=== PATIENT | female | born 1960 | race Caucasian/White ===

== ENCOUNTER 2019-06-25 02:09 | Inpatient (IN) | payer MEDICAID, MEDICARE ==
[~2019-06-25] VITALS: Ht 167.6 cm; Wt 73.9 kg
--- NOTE | 2019-06-25 02:35 | NUR ---
MD AT BEDSIDE TO ASSESS PT
--- NOTE | 2019-06-25 02:41 | NUR ---
THIS IS A 59Y F THAT COMES IN FOR SOB AND PERSISTANT COUGH X1 MONTH. PT STS SHE IS UNABLE TO AMBULATE AROUND HER HOME WITHOUT LOSING HER BREATH. PT STS THIS IS WORSENING OVER THE PAST MONTH. PT DENIES RECENT FEVER CHILLS, N/V/D. PT HAS HX OF CHF AND LUNG CA. PT CONNEFCTED TO MONITORING VSS, CALL LIGHT IN REACH
[2019-06-25] MEDS ORDERED: SODIUM CHLORIDE FLUSH 10ML SYR IVF ONE (03:00)
[2019-06-25 03:29] LABS: INTERNATIONAL NORMALIZED RATIO 1.07 (0.93-1.1); PROTHROMBIN TIME 11.2 Seconds (9.6-11.5)
[2019-06-25 03:30] LABS: ALANINE AMINOTRANSFERASE 28 U/L (12-78); ALBUMIN 3.1 g/dL (3.4-5.0); ANION GAP 7 mmol/L (5-15); CALCIUM 9.3 mg/dL (8.5-10.1); CHLORIDE 107 mmol/L (98-107); CREATININE 0.75 mg/dL (0.55-1.02)
[2019-06-25 03:33] LABS: BASOPHILS # (AUTO) 0.11 x10^3/uL (0-0.1); BASOPHILS % (AUTO) 1 % (0-1); EOSINOPHILS # (AUTO) 0.08 x10^3/uL (0-0.4); EOSINOPHILS % (AUTO) 1 % (1-7); LYMPHOCYTES # (AUTO) 3.71 x10^3/uL (1-3.4); LYMPHOCYTES % (AUTO) 33 % (22-44); MD NO; MEAN CORPUSCULAR HEMOGLOBIN 30.2 pg (27.0-34.8); MEAN CORPUSCULAR VOLUME 97.5 fL (80-100); MEAN PLATELET VOLUME 10.9 fL (7.4-10.4); MONOCYTES % (AUTO) 9 % (2-9); NEUTROPHILS % (AUTO) 57 % (42-75); PLATELET COUNT 325 x10^3/uL (130-400); RED BLOOD COUNT 5.06 x10^6/uL (3.82-5.3); RED CELL DISTRIBUTION WIDTH 16.5 % (9.6-15.2)
--- NOTE | 2019-06-25 03:33 | NUR ---
XRAY AT BEDSIDE
[2019-06-25 03:34] LABS: ALKALINE PHOSPHATASE 98 U/L (45-117); BILIRUBIN,TOTAL 0.5 mg/dL (0.2-1.0); TOTAL PROTEIN 8.2 g/dL (6.4-8.2); TROPONIN I < 0.015 ng/mL (0.000-0.045)
--- NOTE | 2019-06-25 03:37 | NUR ---
PT RESTING ON [employer] WATCHING TV. VSS, CALL LIGHT IN REACH
[2019-06-25] MEDS ORDERED: FUROSEMIDE 40 MG/4 ML ONE (03:59)
[2019-06-25] MEDS ORDERED: FUROSEMIDE 40 MG/4 ML IV ONE (04:00)
[2019-06-25] MEDS ORDERED: LISINOPRIL (04:08)
[2019-06-25] MEDS ORDERED: ATOR40TA78 PO (04:09)
--- NOTE | 2019-06-25 04:10 | NUR ---
hospitalist at bedside to admit pt
[2019-06-25] MEDS ORDERED: SOTA80TA PO (04:11)
[2019-06-25] MEDS ORDERED: ASPI-496 PO (04:12)
[2019-06-25] MEDS ORDERED: BISACODYL 10 MG SUPP PR PRN (04:30)
[2019-06-25] MEDS ORDERED: CEFTRIAXONE PMX 1GM/50ML 50 ML IVPB ONE (04:30)
[2019-06-25] MEDS ORDERED: ONDANSETRON ODT 4 MG PO PRN (04:30)
[2019-06-25] MEDS ORDERED: POLYETHYLENE GLYCOL 17 GM PACKET PO PRN (04:30)
[2019-06-25] MEDS ORDERED: hydrALAzine 20 MG/ML, 1ML IVPush PRN (04:30)
[2019-06-25] MEDS ORDERED: PROMETHAZINE 25 MG/ML, 1ML IM PRN (04:30)
[2019-06-25] MEDS ORDERED: AZITHROMYCIN 500 MG in SODIUM CHLORIDE 0.9% 250 ML IVPB ONE (04:30)
[2019-06-25] MEDS ORDERED: ENOXAPARIN 40 MG/0.4 ML ONE (05:15)
[2019-06-25] MEDS ORDERED: CEFTRIAXONE PMX 2GM/50ML 50 ML ONE (05:15)
[2019-06-25] MEDS: ENOXAPARIN 40 MG/0.4 ML SQ SCH (05:24)
[2019-06-25] MEDS: CEFTRIAXONE PMX 2GM/50ML 50 ML IV SCH (05:24)
--- NOTE | 2019-06-25 05:24 | NUR ---
ABX STARTED, BLOOD CULTURES DRAWN X2
[2019-06-25 05:34] LABS: FREE T4 (FREE THYROXINE) 1.7 ng/dL (0.76-1.46)
[2019-06-25 05:37] LABS: HEMOGLOBIN A1C 6.1 % (4.2-6.3)
[2019-06-25] MEDS ORDERED: ACETAMINOPHEN 325 MG TABLET ONE (06:04)
[2019-06-25] MEDS: AZITHROMYCIN 500 MG in SODIUM CHLORIDE 0.9% 250 ML IV SCH (06:07)
[2019-06-25] MEDS: ACETAMINOPHEN 325 MG TABLET PO PRN (06:07)
--- NOTE | 2019-06-25 06:07 | NUR ---
PT MEDICATED PER SEP. PT C/O HOGAN, PT GIVEN TYLENOL PER SEP.
--- NOTE | 2019-06-25 06:58 | NUR ---
REPORT FROM [facility] TO ASSUME CARE AT THIS TIME.
[2019-06-25] MEDS: FUROSEMIDE 20 MG/2 ML IV SCH ×2 (07:30→20:21)
[2019-06-25] MEDS ORDERED: OMNIPAQUE 350 MG/ML, 75ML BOTTLE ONE (07:39)
--- NOTE | 2019-06-25 07:58 | NUR ---
PT RESTING IN ROOM. TACHY, ALL OTHER VSS ON 2LNC. BREAKFAST TRAY ORDERED. NO OTHER NEEDS AT THIS TIME. AWAITING ROOM ASSIGNMENT.
[2019-06-25] MEDS ORDERED: LISINOPRIL 20 MG TABLET ONE (08:27)
[2019-06-25] MEDS ORDERED: ASPIRIN 81 MG TABLET EC ONE (08:27)
[2019-06-25] MEDS ORDERED: GUAIFENESIN ER 600 MG TABLET ONE (08:27)
--- NOTE | 2019-06-25 08:29 | NUR ---
breakfast tray delivered. medications ordered from pharmacy.
[2019-06-25] MEDS: GUAIFENESIN ER 600 MG TABLET PO SCH ×2 (09:22→20:22)
[2019-06-25] MEDS: SOTALOL 80MG TABLET PO SCH ×2 (09:22→20:23)
[2019-06-25] MEDS: LISINOPRIL 20 MG TABLET PO SCH ×2 (09:23→20:21)
[2019-06-25] MEDS: ASPIRIN 81 MG TABLET EC PO SCH (09:23)
[2019-06-25] MEDS ORDERED: OXYcodone IR 5MG TABLET ONE (11:47)
[2019-06-25] MEDS: OXYcodone IR 5MG TABLET PO PRN ×2 (11:50→22:41)
--- NOTE | 2019-06-25 11:53 | NUR ---
PT MEDICATED PER MAR FOR PAIN. VSS. NO OTHER NEEDS EXPRESSED. CALL LIGHT WITHIN REACH. AWAITING ROOM ASSIGNMENT.
--- NOTE | 2019-06-25 15:00 | NUR ---
ASSUMED CARE FOR THIS PT. PT ON A HOLD FOR CARD TELE RESTING ON MONITOR. PT WITH VSS IN NO DISTRESS.
--- NOTE | 2019-06-25 16:00 | NUR ---
PT REQUESTING A MEAL TRAY AND FOOD ORDERED PT AWARE OF DELAY AWAITING FOOD TRAY DELIVERY.
--- NOTE | 2019-06-25 17:11 | NUR ---
THROUGHPUT : CAROLINE FENG FROM TELE CALLED AND STATED ROOM IS NOT CLEAN AND WILL CALL BACK WHEN IT IS.
--- NOTE | 2019-06-25 17:37 | NUR ---
PT MEDICATED FOR PAIN AND IS AWAITING TRANSPORT TO FLOOR REPORT HAS BEEN CALLED.
[2019-06-25] MEDS ORDERED: MORPHINE SULFATE 4 MG/ML, 1ML ONE (17:39)
[2019-06-25] MEDS: morphine SULFATE 10 MG/ML, 1ML IVPush PRN (17:45)
[2019-06-25 19:52] VITALS: BP 114/76
[2019-06-25] MEDS: ATORVASTATIN 40 MG TABLET PO SCH (20:21)
[2019-06-25 21:30] VITALS: BP 114/76
[2019-06-26 00:15] VITALS: BP 110/65
[2019-06-26] MEDS: CEFTRIAXONE PMX 2GM/50ML 50 ML IV SCH (04:08)
[2019-06-26] MEDS: AZITHROMYCIN 500 MG in SODIUM CHLORIDE 0.9% 250 ML IV SCH (04:57)
[2019-06-26] MEDS: ENOXAPARIN 40 MG/0.4 ML SQ SCH (04:57)
[2019-06-26 05:52] LABS: MEAN CORPUSCULAR HEMOGLOBIN 30.5 pg (27.0-34.8); MEAN CORPUSCULAR HGB CONC 31.6 g/dL (32.4-35.8); MEAN CORPUSCULAR VOLUME 96.5 fL (80-100); MEAN PLATELET VOLUME 10.1 fL (7.4-10.4); PLATELET COUNT 295 x10^3/uL (130-400); RED BLOOD COUNT 4.87 x10^6/uL (3.82-5.3); RED CELL DISTRIBUTION WIDTH 16.8 % (9.6-15.2)
[2019-06-26] MEDS: ACETAMINOPHEN 325 MG TABLET PO PRN (05:59)
[2019-06-26 06:00] LABS: ALANINE AMINOTRANSFERASE 25 U/L (12-78); ALBUMIN 2.9 g/dL (3.4-5.0); ANION GAP 8 mmol/L (5-15); CALCIUM 8.5 mg/dL (8.5-10.1); CHLORIDE 104 mmol/L (98-107); CHOLESTEROL, TOTAL 153 mg/dL (140-239); CREATININE 0.74 mg/dL (0.55-1.02); TRIGLYCERIDES 160 mg/dL (50-200); VLDL CHOLESTEROL 32 mg/dL (0-25)
[2019-06-26 06:02] LABS: ALKALINE PHOSPHATASE 91 U/L (45-117); BILIRUBIN,TOTAL 0.3 mg/dL (0.2-1.0); CHOL/HDL RATIO 3.7; HDL CHOL % 27 % (28-40); HDL CHOLESTEROL (DIRECT) 41 mg/dL (40-60); LDL CHOLESTEROL,CALCULATED 80 mg/dL (54-169)
[2019-06-26 06:46] LABS: BASOPHILS % (AUTO) 2 % (0-1); EOSINOPHILS # (AUTO) 0.15 x10^3/uL (0-0.4); EOSINOPHILS % (AUTO) 1 % (1-7); LYMPHOCYTES # (AUTO) 4.02 x10^3/uL (1-3.4); LYMPHOCYTES % (AUTO) 36 % (22-44); MD SCAN; MONOCYTES # (AUTO) 1.47 x10^3/uL (0.2-0.8); MONOCYTES % (AUTO) 13 % (2-9); NEUTROPHILS # (AUTO) 5.26 x10^3/uL (1.8-6.8); NEUTROPHILS % (AUTO) 47 % (42-75)
[2019-06-26 07:49] VITALS: BP 113/77
[2019-06-26] MEDS: GUAIFENESIN ER 600 MG TABLET PO SCH ×3 (08:19→21:08)
[2019-06-26] MEDS: LISINOPRIL 20 MG TABLET PO SCH ×2 (08:19→21:06)
[2019-06-26] MEDS: ASPIRIN 81 MG TABLET EC PO SCH (08:19)
[2019-06-26] MEDS: SOTALOL 80MG TABLET PO SCH ×2 (08:20→21:06)
[2019-06-26] MEDS: FUROSEMIDE 20 MG/2 ML IV SCH ×2 (08:21→17:24)
[2019-06-26] MEDS: morphine SULFATE 10 MG/ML, 1ML IVPush PRN ×2 (08:22→13:46)
[2019-06-26 13:32] VITALS: BP 111/69
[2019-06-26] MEDS: ALPRazolam 1MG TAB PO PRN (14:43)
[2019-06-26 21:02] VITALS: BP 91/61
[2019-06-26] MEDS: ATORVASTATIN 40 MG TABLET PO SCH (21:06)
[2019-06-27 01:16] VITALS: BP 124/95
[2019-06-27] MEDS: ALPRazolam 1MG TAB PO PRN (01:17)
[2019-06-27] MEDS: CEFTRIAXONE PMX 2GM/50ML 50 ML IV SCH (05:03)
[2019-06-27] MEDS: ENOXAPARIN 40 MG/0.4 ML SQ SCH (05:03)
[2019-06-27] MEDS: AZITHROMYCIN 500 MG in SODIUM CHLORIDE 0.9% 250 ML IV SCH (06:01)
[2019-06-27] MEDS: morphine SULFATE 10 MG/ML, 1ML IVPush PRN ×3 (07:00→22:29)
[2019-06-27 07:33] VITALS: BP 96/58
[2019-06-27] MEDS: GUAIFENESIN ER 600 MG TABLET PO SCH ×2 (08:31→20:06)
[2019-06-27] MEDS: FUROSEMIDE 20 MG/2 ML IV SCH ×2 (08:31→17:21)
[2019-06-27] MEDS: ASPIRIN 81 MG TABLET EC PO SCH (08:31)
[2019-06-27] MEDS: SOTALOL 80MG TABLET PO SCH ×2 (08:32→20:07)
[2019-06-27] MEDS: LISINOPRIL 20 MG TABLET PO SCH (09:00)
[2019-06-27 10:23] VITALS: BP 84/59
[2019-06-27 14:21] VITALS: BP 107/72
[2019-06-27 17:21] VITALS: BP 110/77
[2019-06-27 18:32] VITALS: BP 114/75
[2019-06-27] MEDS: ATORVASTATIN 40 MG TABLET PO SCH (20:07)
[2019-06-28] VITALS (7 sets, daily range): BP systolic 100–142; BP diastolic 65–92
[2019-06-28] MEDS: CEFTRIAXONE PMX 2GM/50ML 50 ML IV SCH (05:03)
[2019-06-28 05:10] LABS: CHLORIDE 103 mmol/L (98-107)
[2019-06-28 05:20] LABS: ANION GAP 7 mmol/L (5-15); CALCIUM 8.6 mg/dL (8.5-10.1); CREATININE 0.59 mg/dL (0.55-1.02)
[2019-06-28] MEDS: morphine SULFATE 10 MG/ML, 1ML IVPush PRN ×4 (05:23→21:05)
[2019-06-28] MEDS ORDERED: FLU VACC QS2019-20 36MOS UP/PF 0.5 ML IM-VACC ONE (06:00)
[2019-06-28] MEDS: AZITHROMYCIN 500 MG in SODIUM CHLORIDE 0.9% 250 ML IV SCH (06:06)
[2019-06-28] MEDS: FUROSEMIDE 20 MG/2 ML IV SCH ×2 (08:00→16:27)
[2019-06-28] MEDS: ASPIRIN 81 MG TABLET EC PO SCH (08:02)
[2019-06-28] MEDS: SOTALOL 80MG TABLET PO SCH ×2 (08:02→21:05)
[2019-06-28] MEDS: SPIRONOLACTONE 25 MG TABLET PO SCH (08:02)
[2019-06-28] MEDS: GUAIFENESIN ER 600 MG TABLET PO SCH ×2 (08:02→21:04)
[2019-06-28] MEDS: ENOXAPARIN 40 MG/0.4 ML SQ SCH (10:18)
[2019-06-28] MEDS: LISINOPRIL 5 MG TABLET PO SCH (10:19)
[2019-06-28] MEDS: ATORVASTATIN 40 MG TABLET PO SCH (21:05)
[2019-06-29 00:14] VITALS: BP 100/56
[2019-06-29] MEDS: CEFTRIAXONE PMX 2GM/50ML 50 ML IV SCH (04:30)
[2019-06-29] MEDS: morphine SULFATE 10 MG/ML, 1ML IVPush PRN ×4 (04:45→20:18)
[2019-06-29] MEDS: AZITHROMYCIN 500 MG in SODIUM CHLORIDE 0.9% 250 ML IV SCH (06:21)
[2019-06-29 07:55] VITALS: BP 103/72
[2019-06-29] MEDS: FUROSEMIDE 20 MG/2 ML IV SCH ×2 (09:58→17:08)
[2019-06-29] MEDS: SOTALOL 80MG TABLET PO SCH ×2 (09:58→20:33)
[2019-06-29] MEDS: SPIRONOLACTONE 25 MG TABLET PO SCH (09:58)
[2019-06-29] MEDS: LISINOPRIL 5 MG TABLET PO SCH (09:58)
[2019-06-29] MEDS: ENOXAPARIN 40 MG/0.4 ML SQ SCH (10:42)
[2019-06-29] MEDS: ASPIRIN 81 MG TABLET EC PO SCH (10:42)
[2019-06-29] MEDS: GUAIFENESIN ER 600 MG TABLET PO SCH ×2 (10:45→20:16)
[2019-06-29 11:23] VITALS: BP 113/75
[2019-06-29] MEDS: OXYcodone IR 5MG TABLET PO PRN (12:42)
[2019-06-29 14:22] VITALS: BP 108/73
[2019-06-29 18:29] VITALS: BP 113/68
[2019-06-29] MEDS: ATORVASTATIN 40 MG TABLET PO SCH (20:16)
[2019-06-30 00:03] VITALS: BP 120/82
[2019-06-30] MEDS: morphine SULFATE 10 MG/ML, 1ML IVPush PRN ×2 (00:23→04:38)
[2019-06-30] MEDS: CEFTRIAXONE PMX 2GM/50ML 50 ML IV SCH (04:36)
[2019-06-30 05:30] LABS: CHLORIDE 102 mmol/L (98-107)
[2019-06-30 05:36] LABS: ANION GAP 4 mmol/L (5-15); CALCIUM 9.1 mg/dL (8.5-10.1); CREATININE 0.55 mg/dL (0.55-1.02)
[2019-06-30 05:47] LABS: MEAN CORPUSCULAR HEMOGLOBIN 29.9 pg (27.0-34.8); MEAN CORPUSCULAR VOLUME 96.5 fL (80-100); MEAN PLATELET VOLUME 10.2 fL (7.4-10.4); PLATELET COUNT 306 x10^3/uL (130-400); RED CELL DISTRIBUTION WIDTH 15.7 % (9.6-15.2)
[2019-06-30] MEDS: ONDANSETRON 2MG/ML, 2ML IVPush PRN (06:07)
[2019-06-30] MEDS: AZITHROMYCIN 500 MG in SODIUM CHLORIDE 0.9% 250 ML IV SCH (06:08)
[2019-06-30] MEDS: ENOXAPARIN 40 MG/0.4 ML SQ SCH (07:51)
[2019-06-30] MEDS: ALPRazolam 1MG TAB PO PRN ×2 (08:04→17:12)
[2019-06-30 08:10] VITALS: BP 103/68
[2019-06-30 08:14] LABS: BASOPHILS % (AUTO) 1 % (0-1); EOSINOPHILS # (AUTO) 0.14 x10^3/uL (0-0.4); EOSINOPHILS % (AUTO) 1 % (1-7); LYMPHOCYTES # (AUTO) 3.86 x10^3/uL (1-3.4); LYMPHOCYTES % (AUTO) 33 % (22-44); MD SCAN; MONOCYTES # (AUTO) 1.71 x10^3/uL (0.2-0.8); MONOCYTES % (AUTO) 15 % (2-9); NEUTROPHILS # (AUTO) 5.85 x10^3/uL (1.8-6.8); NEUTROPHILS % (AUTO) 50 % (42-75)
[2019-06-30] MEDS: SOTALOL 80MG TABLET PO SCH ×2 (08:34→21:02)
[2019-06-30] MEDS ORDERED: MIDAZOLAM 1 MG/ML, 2ML ONE (10:10)
[2019-06-30] MEDS ORDERED: FENTANYL PF 250 MCG/5ML ONE (10:10)
[2019-06-30] MEDS ORDERED: ROCURONIUM 10 MG/ML,10ML ONE (11:52)
[2019-06-30] MEDS ORDERED: SUGAMMADEX 200 MG/2 ML IVPush ONE (11:52)
[2019-06-30] MEDS ORDERED: PHENYLEPHRINE 10 MG/ML ONE (11:52)
[2019-06-30] MEDS ORDERED: PROPOFOL 50 ML ONE (12:03)
[2019-06-30] MEDS ORDERED: FENTANYL PF 100 MCG/2ML ONE (13:39)
[2019-06-30] MEDS ORDERED: OXYcodone 5 MG/5 ML ORAL.SOL UDC ONE (13:39)
[2019-06-30] MEDS ORDERED: HYDROmorphone 2 MG/ML, 1ML IVPush PRN (14:00)
[2019-06-30] MEDS ORDERED: OXYcodone 5 MG/5 ML ORAL.SOL UDC PO PRN (14:00)
[2019-06-30] MEDS ORDERED: FENTANYL PF 100 MCG/2ML IV PRN (14:00)
[2019-06-30] MEDS: GUAIFENESIN ER 600 MG TABLET PO SCH ×2 (15:12→21:01)
[2019-06-30] MEDS: SPIRONOLACTONE 25 MG TABLET PO SCH (15:12)
[2019-06-30] MEDS: ASPIRIN 81 MG TABLET EC PO SCH (15:12)
[2019-06-30] MEDS: LISINOPRIL 5 MG TABLET PO SCH (15:12)
[2019-06-30 15:14] VITALS: BP 118/74
[2019-06-30] MEDS ORDERED: OMNIPAQUE 350 MG/ML, 100ML BOTTLE ONE (16:33)
[2019-06-30 20:01] VITALS: BP 99/71
[2019-06-30] MEDS: ATORVASTATIN 40 MG TABLET PO SCH (21:01)
[2019-07-01] MEDS: ONDANSETRON 2MG/ML, 2ML IVPush PRN (00:21)
[2019-07-01] MEDS: morphine SULFATE 10 MG/ML, 1ML IVPush PRN ×5 (00:21→23:46)
[2019-07-01 00:29] VITALS: BP 102/64
[2019-07-01] MEDS: CEFTRIAXONE PMX 2GM/50ML 50 ML IV SCH (04:51)
[2019-07-01] MEDS: AZITHROMYCIN 500 MG in SODIUM CHLORIDE 0.9% 250 ML IV SCH (05:52)
[2019-07-01] MEDS: ALPRazolam 1MG TAB PO PRN (06:42)
[2019-07-01] MEDS: ENOXAPARIN 40 MG/0.4 ML SQ SCH (07:53)
[2019-07-01] MEDS: ASPIRIN 81 MG TABLET EC PO SCH (08:05)
[2019-07-01] MEDS: LISINOPRIL 5 MG TABLET PO SCH (08:05)
[2019-07-01] MEDS: GUAIFENESIN ER 600 MG TABLET PO SCH ×2 (08:05→20:34)
[2019-07-01] MEDS: SOTALOL 80MG TABLET PO SCH ×2 (08:06→20:35)
[2019-07-01] MEDS: FUROSEMIDE 20 MG/2 ML IV SCH ×2 (08:06→08:13)
[2019-07-01] MEDS: SPIRONOLACTONE 25 MG TABLET PO SCH (08:06)
[2019-07-01 08:23] VITALS: BP 109/79
[2019-07-01] MEDS: OXYcodone IR 5MG TABLET PO PRN ×2 (12:06→20:34)
[2019-07-01 12:54] VITALS: BP 91/65
[2019-07-01] MEDS: ENOXAPARIN 60 MG/0.6 ML SQ SCH (18:01)
[2019-07-01 20:21] VITALS: BP 95/62
[2019-07-01] MEDS: ATORVASTATIN 40 MG TABLET PO SCH (20:34)
[2019-07-02] VITALS (7 sets, daily range): BP systolic 86–129; BP diastolic 49–82
[2019-07-02] MEDS: CEFTRIAXONE PMX 2GM/50ML 50 ML IV SCH (04:48)
[2019-07-02] MEDS: AZITHROMYCIN 500 MG in SODIUM CHLORIDE 0.9% 250 ML IV SCH (05:48)
[2019-07-02] MEDS: morphine SULFATE 10 MG/ML, 1ML IVPush PRN ×5 (05:49→21:35)
[2019-07-02] MEDS: ENOXAPARIN 60 MG/0.6 ML SQ SCH (05:49)
[2019-07-02] MEDS: SPIRONOLACTONE 25 MG TABLET PO SCH (08:49)
[2019-07-02] MEDS: FUROSEMIDE 20 MG/2 ML IV SCH (08:49)
[2019-07-02] MEDS: LISINOPRIL 5 MG TABLET PO SCH (08:50)
[2019-07-02] MEDS: GUAIFENESIN ER 600 MG TABLET PO SCH ×2 (08:51→21:36)
[2019-07-02] MEDS: ASPIRIN 81 MG TABLET EC PO SCH (08:51)
[2019-07-02] MEDS: SOTALOL 80MG TABLET PO SCH ×2 (08:54→21:37)
--- NOTE | 2019-07-02 10:16 | NUR ---
REC REGULAR/NTL; ORANGE SHEET WITH DIET RECS AND SWALLOW STRATEGIES POSTED AT BEDSIDE. Addendum: 07/02/19 at 1016 by Viktoria OGDEN Amended: Links added.
[2019-07-02] MEDS: ONDANSETRON 2MG/ML, 2ML IVPush PRN (12:21)
[2019-07-02] MEDS: DEXAMETHASONE 4 MG TABLET PO SCH ×2 (12:21→17:14)
[2019-07-02] MEDS: OXYcodone IR 5MG TABLET PO PRN ×2 (18:41→22:23)
[2019-07-02] MEDS: ALPRazolam 1MG TAB PO PRN (21:36)
[2019-07-02] MEDS: ATORVASTATIN 40 MG TABLET PO SCH (21:37)
[2019-07-03 02:44] VITALS: BP 124/86
[2019-07-03] MEDS: OXYcodone IR 5MG TABLET PO PRN ×3 (02:56→16:45)
[2019-07-03] MEDS: morphine SULFATE 10 MG/ML, 1ML IVPush PRN ×5 (04:40→21:54)
[2019-07-03] MEDS: CEFTRIAXONE PMX 2GM/50ML 50 ML IV SCH (05:04)
[2019-07-03 05:53] LABS: ALBUMIN 2.7 g/dL (3.4-5.0); ANION GAP 6 mmol/L (5-15); CALCIUM 9.4 mg/dL (8.5-10.1); CHLORIDE 102 mmol/L (98-107)
[2019-07-03 05:56] LABS: ALANINE AMINOTRANSFERASE 29 U/L (12-78); ALKALINE PHOSPHATASE 84 U/L (45-117); BILIRUBIN,TOTAL 0.4 mg/dL (0.2-1.0); CREATININE 0.71 mg/dL (0.55-1.02); TOTAL PROTEIN 8.2 g/dL (6.4-8.2)
[2019-07-03] MEDS: AZITHROMYCIN 500 MG in SODIUM CHLORIDE 0.9% 250 ML IV SCH (05:59)
[2019-07-03 06:12] LABS: MEAN CORPUSCULAR HEMOGLOBIN 30.3 pg (27.0-34.8); MEAN CORPUSCULAR HGB CONC 30.8 g/dL (32.4-35.8); MEAN CORPUSCULAR VOLUME 98.3 fL (80-100); MEAN PLATELET VOLUME 10.6 fL (7.4-10.4); PLATELET COUNT 303 x10^3/uL (130-400); RED BLOOD COUNT 4.59 x10^6/uL (3.82-5.3); RED CELL DISTRIBUTION WIDTH 15.6 % (9.6-15.2)
[2019-07-03 07:05] LABS: BASOPHILS # (AUTO) 0.01 x10^3/uL (0-0.1); BASOPHILS % (AUTO) 0 % (0-1); EOSINOPHILS # (AUTO) 0.04 x10^3/uL (0-0.4); EOSINOPHILS % (AUTO) 1 % (1-7); LYMPHOCYTES # (AUTO) 1.52 x10^3/uL (1-3.4); LYMPHOCYTES % (AUTO) 21 % (22-44); MD SCAN; MONOCYTES % (AUTO) 1 % (2-9); NEUTROPHILS # (AUTO) 5.49 x10^3/uL (1.8-6.8); NEUTROPHILS % (AUTO) 77 % (42-75)
[2019-07-03 07:38] VITALS: BP 123/79
[2019-07-03] MEDS: LISINOPRIL 5 MG TABLET PO SCH (08:09)
[2019-07-03] MEDS: ASPIRIN 81 MG TABLET EC PO SCH (08:10)
[2019-07-03] MEDS: AMOXICILLIN/CLAV 875-125MG TABLET PO SCH ×2 (08:10→21:09)
[2019-07-03] MEDS: GUAIFENESIN ER 600 MG TABLET PO SCH ×2 (08:11→21:09)
[2019-07-03] MEDS: SPIRONOLACTONE 25 MG TABLET PO SCH (08:11)
[2019-07-03] MEDS: DOXYCYCLINE 100MG TABLET PO SCH ×2 (08:11→21:09)
[2019-07-03] MEDS: DEXAMETHASONE 4 MG TABLET PO SCH ×3 (08:11→16:48)
[2019-07-03] MEDS: SOTALOL 80MG TABLET PO SCH ×2 (08:11→21:09)
[2019-07-03] MEDS: DOCUSATE 100 MG CAPSULE PO PRN (08:12)
[2019-07-03] MEDS: FUROSEMIDE 20 MG/2 ML IV SCH (08:15)
[2019-07-03 12:55] VITALS: BP 110/71
[2019-07-03] MEDS: HEPARIN 5,000 UNITS/ML, 1ML SQ SCH ×2 (16:44→18:17)
[2019-07-03 18:41] VITALS: BP 114/78
[2019-07-03] MEDS: ATORVASTATIN 40 MG TABLET PO SCH (21:09)
[2019-07-03] MEDS ORDERED: MORPHINE SULFATE 4 MG/ML, 1ML ONE (21:52)
[2019-07-04] MEDS: morphine SULFATE 10 MG/ML, 1ML IVPush PRN ×6 (01:08→21:13)
[2019-07-04 01:13] VITALS: BP 121/77
[2019-07-04] MEDS: HEPARIN 5,000 UNITS/ML, 1ML SQ SCH ×2 (04:03→11:09)
[2019-07-04 07:54] VITALS: BP 119/75
[2019-07-04] MEDS: DOXYCYCLINE 100MG TABLET PO SCH ×2 (09:23→21:11)
[2019-07-04] MEDS: DEXAMETHASONE 4 MG TABLET PO SCH ×3 (09:23→17:08)
[2019-07-04] MEDS: AMOXICILLIN/CLAV 875-125MG TABLET PO SCH ×2 (09:23→21:11)
[2019-07-04] MEDS: GUAIFENESIN ER 600 MG TABLET PO SCH ×2 (09:24→21:11)
[2019-07-04] MEDS: SPIRONOLACTONE 25 MG TABLET PO SCH (09:24)
[2019-07-04] MEDS: FUROSEMIDE 20 MG TABLET PO SCH (09:25)
[2019-07-04] MEDS: SOTALOL 80MG TABLET PO SCH ×2 (09:25→21:12)
[2019-07-04] MEDS: LISINOPRIL 5 MG TABLET PO SCH (09:26)
[2019-07-04] MEDS: ASPIRIN 81 MG TABLET EC PO SCH (09:43)
[2019-07-04] MEDS: ALPRazolam 1MG TAB PO PRN ×2 (09:43→21:11)
[2019-07-04] MEDS: OXYcodone IR 5MG TABLET PO PRN (11:10)
[2019-07-04] MEDS: DOCUSATE 100 MG CAPSULE PO PRN (11:42)
[2019-07-04] MEDS: OxyconTIN ER 10 MG TAB.ER PO SCH ×2 (12:05→23:32)
[2019-07-04 13:04] VITALS: BP 113/70
[2019-07-04] MEDS: APIXABAN 5 MG TABLET PO SCH ×2 (17:08→21:11)
[2019-07-04 20:11] VITALS: BP 115/75
[2019-07-04] MEDS: ATORVASTATIN 40 MG TABLET PO SCH (21:11)
[2019-07-04] MEDS: ONDANSETRON 2MG/ML, 2ML IVPush PRN (21:13)
[2019-07-05] MEDS: morphine SULFATE 10 MG/ML, 1ML IVPush PRN ×5 (00:41→11:13)
[2019-07-05 02:36] VITALS: BP 114/77
[2019-07-05] MEDS: OXYcodone IR 5MG TABLET PO PRN ×2 (04:08→16:31)
[2019-07-05 07:09] VITALS: BP 119/73
[2019-07-05] MEDS: APIXABAN 5 MG TABLET PO SCH (08:01)
[2019-07-05] MEDS: AMOXICILLIN/CLAV 875-125MG TABLET PO SCH (08:01)
[2019-07-05] MEDS: SOTALOL 80MG TABLET PO SCH (08:01)
[2019-07-05] MEDS: FUROSEMIDE 20 MG TABLET PO SCH (08:01)
[2019-07-05] MEDS: DEXAMETHASONE 4 MG TABLET PO SCH ×3 (08:01→16:20)
[2019-07-05] MEDS: ASPIRIN 81 MG TABLET EC PO SCH (08:01)
[2019-07-05] MEDS: GUAIFENESIN ER 600 MG TABLET PO SCH (08:01)
[2019-07-05] MEDS: SPIRONOLACTONE 25 MG TABLET PO SCH (08:02)
[2019-07-05] MEDS: LISINOPRIL 5 MG TABLET PO SCH (08:04)
[2019-07-05] MEDS: DOXYCYCLINE 100MG TABLET PO SCH (09:00)
[2019-07-05] MEDS: OxyconTIN ER 10 MG TAB.ER PO SCH (12:01)
[2019-07-05 12:37] VITALS: BP 95/56
[2019-07-05] MEDS ORDERED: LISI5TAB7 PO (14:37)
[2019-07-05] MEDS ORDERED: APIX5TAB PO (14:37)
[2019-07-05] MEDS ORDERED: GUAI600T31 PO (14:37)
[2019-07-05] MEDS ORDERED: DEXA4TAB66 PO (14:37)
[2019-07-05] MEDS ORDERED: SPIR25TA PO (14:37)
[2019-07-05] MEDS ORDERED: FURO20TA3 PO (14:37)
[2019-07-05] MEDS ORDERED: DOCU100C33 PO (14:37)
[2019-07-05] MEDS ORDERED: OXYC10TA47 PO (14:38)
[2019-07-05] MEDS ORDERED: OXYC5TAB3 PO (14:39)
== END 2019-07-05 17:26 | disposition home health service (06) | DRG 180 ==
LOC: ED 02:51 → EDIP 04:46 → 5SO 18:29 → 4NW 07-02 17:26 → DCLOUNGE 07-05 17:03
PROVIDERS: ADMIT Internal Medicine; ATTEND Internal Medicine
PROC: 07D78ZX Extraction of Thorax Lymphatic, Via Natural or Artificial Opening Endoscopic, Diagnostic (ICD-10-PCS; 2019-06-30)
PROC: BB4CZZZ Ultrasonography of Mediastinum (ICD-10-PCS; 2019-06-30)
PROC: 0BD38ZX Extraction of Right Main Bronchus, Via Natural or Artificial Opening Endoscopic, Diagnostic (ICD-10-PCS; 2019-06-30)
PROC: B3111ZZ Fluoroscopy of Right Brachiocephalic-Subclavian Artery using Low Osmolar Contrast (ICD-10-PCS; principal; 2019-07-02)
PROC: B31G1ZZ Fluoroscopy of Bilateral Vertebral Arteries using Low Osmolar Contrast (ICD-10-PCS; 2019-07-02)
PROC: B3121ZZ Fluoroscopy of Left Subclavian Artery using Low Osmolar Contrast (ICD-10-PCS; 2019-07-02)
PROC: B3181ZZ Fluoroscopy of Bilateral Internal Carotid Arteries using Low Osmolar Contrast (ICD-10-PCS; 2019-07-02)
PROC: B31B1ZZ Fluoroscopy of Left External Carotid Artery using Low Osmolar Contrast (ICD-10-PCS; 2019-07-02)
PROC: B3151ZZ Fluoroscopy of Bilateral Common Carotid Arteries using Low Osmolar Contrast (ICD-10-PCS; 2019-07-02)
PROC: [UNRECOGNIZED PROCEDURE] (2019-07-05)
DX: C34.90 Malignant neoplasm of unspecified part of unspecified bronchus or lung (principal); J15.9 Unspecified bacterial pneumonia; I50.23 Acute on chronic systolic (congestive) heart failure; J96.01 Acute respiratory failure with hypoxia; I63.9 Cerebral infarction, unspecified; D68.59 Other primary thrombophilia; E78.00 Pure hypercholesterolemia, unspecified; E78.5 Hyperlipidemia, unspecified; I11.0 Hypertensive heart disease with heart failure; I25.10 Atherosclerotic heart disease of native coronary artery without angina pectoris; I48.0 Paroxysmal atrial fibrillation; I70.0 Atherosclerosis of aorta; I65.22 Occlusion and stenosis of left carotid artery; Z66 Do not resuscitate; Z80.3 Family history of malignant neoplasm of breast; Z80.8 Family history of malignant neoplasm of other organs or systems; Z87.11 Personal history of peptic ulcer disease; Z87.891 Personal history of nicotine dependence; Z90.2 Acquired absence of lung [part of]; Z85.118 Personal history of other malignant neoplasm of bronchus and lung; Z90.81 Acquired absence of spleen; Z95.1 Presence of aortocoronary bypass graft; Z95.810 Presence of automatic (implantable) cardiac defibrillator
CPT/HCPCS: 0399T; 31629; 36415; 70460; 70498; 71045; 71260; 74177; 77290; 77300; 77301; 77334; 77338; 77386; 77470; 80048; 80053; 80061; 83036; 83735; 83880; 84100; 84439; 84443; 84484; 85025; 85610; 85730; 87040; 88172; 88173; 88177; 88305; 88341; 88342; 90686; 93005; 93306; 93880; 96374; G0378; J0456; J0696; J1644; J1650; J1940; J2250; J2405; J2704; J3010; Q0162; Q9967; J2270; J2370; J7050

== ENCOUNTER 2019-07-06 12:13 | Emergency (ER) | payer MEDICARE ==
[~2019-07-06] VITALS: Ht 167.6 cm; Wt 65.0 kg
[~2019-07-06 12:13] MED LIST: APIX5TAB PO; ASPI-496 PO; ATOR40TA78 PO; DEXA4TAB66 PO; DOCU100C33 PO; FURO20TA3 PO; GUAI600T31 PO; LISI5TAB7 PO; LISINOPRIL; OXYC10TA47 PO; OXYC5TAB3 PO; SOTA80TA PO; SPIR25TA PO
[2019-07-06 12:24] VITALS: BP 146/95
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
[2019-07-06] MEDS ORDERED: OXYcodone/APAP 10/325MG TABLET ONE (13:15)
[2019-07-06] MEDS ORDERED: OXYcodone/APAP 10/325MG TABLET PO ONE (13:30)
== END 2019-07-06 13:42 | disposition home or self-care (01) ==
LOC: ED 13:36
DX: C34.90 Malignant neoplasm of unspecified part of unspecified bronchus or lung (principal); Z76.0 Encounter for issue of repeat prescription; I25.10 Atherosclerotic heart disease of native coronary artery without angina pectoris; I11.0 Hypertensive heart disease with heart failure; I50.9 Heart failure, unspecified; E78.00 Pure hypercholesterolemia, unspecified
CPT/HCPCS: 99283

== ENCOUNTER 2019-08-11 07:16 | Outpatient (CLI) | payer MEDICARE, OTHER | END 2019-08-11 23:59 | disposition home or self-care (01) | LOC: ROC 07:16 | PROVIDERS: ATTEND Radiology Radiation Oncology | DX: Z02.9 Encounter for administrative examinations, unspecified (principal) ==